=== PATIENT | female | born 1970 | race Caucasian/White ===

== ENCOUNTER 2021-02-26 01:27 | Emergency (ER) | payer BC, SELFPAY ==
[2021-02-26] VITALS (17 sets, daily range): BP systolic 120–173; BP diastolic 85–120; PULSE 73–107; RESP 14–20; TEMP 36.9; O2SAT 97–100; BMI 21.6
--- NOTE | 2021-02-26 | ECG_ITS ---
APPROVED REPORT Exam: Resting ECG HR:104 bpm ECG Measurements Heart Rate 104 AXES AL 164 P 79 QRSd 82 QRS 68 QT 358 T 60 QTc 470 Conclusion Sinus tachycardia Biatrial enlargement Abnormal ECG Electronically signed by : Raffaele Bassett, 02/26/2021 08:15:10
--- NOTE | 2021-02-26 01:28 | XR_ITS ---
PROCEDURE INFORMATION: Exam: XR Chest Exam date and time: 02/26/2021 1:28 AM Age: 51 years old Clinical indication: Other: Unresponsive; Additional info: Overdose TECHNIQUE: Imaging protocol: XR of the chest. Views: 1 view. COMPARISON: CR CXR CHEST(2 VIEWS-NOT PORTABLE) 11/24/2015 3:21 PM FINDINGS: Unremarkable appearing lungs and mediastinum. No effusion or pneumothorax. Cardiomediastinal silhouette is normal. IMPRESSION: No active lung parenchymal lesion.
[2021-02-26 01:35] LABS: ABG Base Excess -1.2 mmol/L (-2.4-2.3); ABG HCO3 22.6 mmhg (22.0-26.0); ABG Oxygen Saturation 98 % (90-100); ABG PCO2 32.6 mmhg (35.0-45.0); ABG PH 7.46 mmol/L (7.35-7.45); ABG PO2 99.8 mmhg (80-100); ABG TCO2 23.6 mmhg (23-27); Allen's Test Y; Oxygen R/A %; Source L/R
[2021-02-26 01:41] LABS: Microscopic, Urine URINE MICROSCOPIC (MICROSCOPIC)
--- NOTE | 2021-02-26 01:42 | CT_ITS ---
PROCEDURE INFORMATION: Exam: CT Head Without Contrast Exam date and time: 02/26/2021 1:42 AM Age: 51 years old Clinical indication: Altered mental status/memory loss; Patient HX: AMS, unresponsive TECHNIQUE: Imaging protocol: Computed tomography of the head without contrast. Radiation optimization: All CT scans at this facility use at least one of these dose optimization techniques: automated exposure control; mA and/or kV adjustment per patient size (includes targeted exams where dose is matched to clinical indication); or iterative reconstruction. COMPARISON: No relevant prior studies available. FINDINGS: Normal appearing brain parenchyma without intraparenchymal hemorrhage and normal rice-white matter differentiation/no obvious acute ischemic stroke. No intra-or extra-axial fluid collection, no supra-or infratentorial mass, no mass effect or midline shift. . Ventricles, sulci and basal cisterns are normal in size without hydrocephalus. Skull bones are normal. No significant mucoperiosteal thickening in the visualized paranasal sinuses. RIGHT mastoid/middle ear effusion. IMPRESSION: 1. No evidence of an acute intracranial hemorrhage, mass lesion or obvious acute ischemic infarction. 2. Acute/subacute RIGHT otitis media.
[2021-02-26 01:44] LABS: Basophils % 0.5 % (0.1-2.0); Eosinophils # 0.1 K/mm3 (0.0-0.4); Eosinophils % 0.7 % (0.1-12.0); Hematocrit 42.4 % (37.0-47.0); Hemoglobin 14.7 g/dL (12.2-16.2); Lymphocytes # 2.8 K/mm3 (0.7-4.5); Lymphocytes % 29.7 % (10-50); Mean Corpuscular HGB Conc 34.6 g/dL (31.8-35.4); Mean Corpuscular Hemoglobin 31.8 pg (27.0-31.2); Mean Corpuscular Volume 91.8 fl (81-99); Mean Platelet Volume 8.5 fl (7.4-10.4); Monocytes # 0.5 K/mm3 (0.1-1.0); Monocytes % 5.3 % (1.7-9.3); Neutrophils % 63.8 % (37.0-80.0); Platelet Count 293 K/mm3 (142-424); Red Blood Count 4.62 M/mm3 (4.20-5.40); Red Cell Distribution Width 13.6 % (11.5-17.5); White Blood Count 9.3 K/mm3 (4.8-10.8)
[2021-02-26 01:50] LABS: Appearance,Urine CLEAR (Clear); Bilirubin,Urine Negative (Negative); Blood, Urine TRACE-I (Negative); Color,Urine STRAW (Yellow); Glucose,Urine (UA) Negative (Negative); Ketones,Urine TRACE (Negative); Leukocyte Esterase,Urine Negative (Negative); Nitrate,Urine Negative (Negative); Protein,Urine Negative (Negative); Specific Gravity, Urine 1.015 (1.005-1.030); Urobilinogen,Urine 0.2 EU/dl (0.2)
[2021-02-26 01:53] LABS: Alanine Aminotransferase 24 U/L (12-78); Albumin Level 4.5 g/dl (3.5-5.0); Albumin/Globulin Ratio 1.5 (1.1-1.8); Alkaline Phosphatase 70 U/L (38-126); Anion Gap 12.6 mEq/L (5-15); Aspartate Amino Transferase 24 U/L (14-36); Bilirubin,Total 0.6 mg/dl (0.2-1.3); Blood Urea Nitrogen 12 mg/dl (7-17); Calcium 9.3 mg/dl (8.4-10.2); Carbon Dioxide 22 mmol/L (22.0-30.0); Chloride 105 mmol/L (98-107); Creatinine Clearance Estimated 79 mL/min (50-200); Estimated Glomerular Filt Rate 76 ml/min (>60); GFR (African American) 92 ML/MIN (>60); Globulin 3.1 g/dL (1.3-3.2); Glucose 92 mg/dl (74-100); Potassium 3.6 mmoL/L (3.5-5.1); Sodium 136 mmol/L (136-145); Total Protein,Serum 7.6 g/dl (6.3-8.2)
[2021-02-26 01:58] LABS: Barbiturates Screen,Urine Negative ng/ml (<200); Benzodiazepines Screen,Urine Negative ng/ml (<200)
[2021-02-26 01:59] LABS: Amphetamine/Metha Screen,Urine Negative ng/ml (<1000)
[2021-02-26 02:00] LABS: Acetaminophen < 10 ug/ml (10-30); Bacteria,Urine Trace /lpf; Cocaine Screen,Urine Negative ng/ml (<300); Ethyl Alcohol < 10 mg/dl (0-10); Methadone Screen,Urine Negative ng/ml (<300); RBC,Urine Occasional #/hpf (0-3); Salicylate < 1.0 mg/dL (2.0-20.0)
[2021-02-26 02:01] LABS: Cannabinoid Screen,Urine Negative ng/ml (<50)
[2021-02-26 02:02] LABS: Opiate Screen,Urine Negative ng/ml (<300); Phencyclidine Screen,Urine Negative ng/ml (<25)
[2021-02-26 02:10] LABS: Procalcitonin 0.034 ng/mL (0.0-2.0)
[2021-02-26 02:11] LABS: Troponin I < 0.01 ng/ml (0.00-0.034)
--- NOTE | 2021-02-26 02:24 | PC.NURSE ---
Pt has black wallet that was given to her sister.
--- NOTE | 2021-02-26 02:33 | HMH.EDAMS ---
ED Disposition Clinical Impression: Misuse of [id number] medications Depression Qualifiers: Depression Type: unspecified Qualified Code(s): F32.9 - Major depressive disorder, single episode, unspecified Disposition: Home, Self-Care Condition on Discharge: Good Instructions: DI for Depression -- Adult Additional Instructions: call pcp in am for follow up Referrals: Raffaele Bassett MD [Primary Care Provider] - - Critical Care Critical Care Time: No Attestation: On 02/26/21, the high probability of a clinically significant, sudden or life threatening deterioration of the following system(s) required my full and direct attention, intervention and personal management. The time I documented below is in addition to time spent performing reported procedures but includes the following listed in this critical care notation. Medical Decision Making - Medical Records Medical records reviewed: Yes: I reviewed the patient's medical records. - Brad Inquiry Pt receiving controlled substance: No Vital Signs: 02/26/21 01:54 02/26/21 02:06 02/26/21 02:30 Temperature 98.5 F Temperature Source Rectal Pulse Rate 100 H 94 H Pulse Rate [Right] 101 H Respiratory Rate 14 17 19 Blood Pressure 167/112 H 173/120 H Blood Pressure [Right Arm] 160/118 H Blood Pressure Mean Blood Pressure Mean [Right Arm] 132 Blood Pressure Source [Right Arm] Manual Cuff/ Auscultation 02 Sat by Pulse Oximetry 100 100 100 Oxygen Delivery Method Room Air 02/26/21 03:00 02/26/21 03:30 02/26/21 04:00 Temperature Temperature Source Pulse Rate 107 H 92 H 86 Pulse Rate [Right] Respiratory Rate 15 18 16 Blood Pressure 169/110 H 157/101 H 159/105 H Blood Pressure [Right Arm] Blood Pressure Mean 132 123 Blood Pressure Mean [Right Arm] Blood Pressure Source [Right Arm] 02 Sat by Pulse Oximetry 100 99 98 Oxygen Delivery Method Room Air Room Air 02/26/21 04:33 02/26/21 05:00 02/26/21 05:31 Temperature Temperature Source Pulse Rate 82 88 94 H Pulse Rate [Right] Respiratory Rate 16 20 14 Blood Pressure 159/106 H 166/103 H 132/101 H Blood Pressure [Right Arm] Blood Pressure Mean 120 114 113 Blood Pressure Mean [Right Arm] Blood Pressure Source [Right Arm] 02 Sat by Pulse Oximetry 97 98 98 Oxygen Delivery Method Room Air Room Air Room Air 02/26/21 06:00 02/26/21 06:30 02/26/21 07:00 Temperature Temperature Source Pulse Rate 73 87 76 Pulse Rate [Right] Respiratory Rate 18 Blood Pressure 149/106 H 131/95 H 120/85 Blood Pressure [Right Arm] Blood Pressure Mean 120 107 96 Blood Pressure Mean [Right Arm] Blood Pressure Source [Right Arm] 02 Sat by Pulse Oximetry 99 99 99 Oxygen Delivery Method Room Air 02/26/21 07:15 02/26/21 07:51 02/26/21 08:30 Temperature Temperature Source Pulse Rate 85 90 79 Pulse Rate [Right] Respiratory Rate Blood Pressure 150/101 H 155/113 H 147/96 H Blood Pressure [Right Arm] Blood Pressure Mean Blood Pressure Mean [Right Arm] Blood Pressure Source [Right Arm] 02 Sat by Pulse Oximetry 98 97 98 Oxygen Delivery Method - Lab Data Lab results reviewed: Yes: I reviewed the patient's lab results. Lab Results 02/26/21 01:30: Urine Color Straw, Urine Appearance Clear, Urine pH 6.0, Ur Specific [place] 1.015, Urine Protein Negative, Urine Glucose (UA) Negative, Urine Ketones Trace, Urine Blood Trace-i, Urine Nitrate Negative, Urine Bilirubin Negative, Urine Urobilinogen 0.2, Ur Leukocyte Esterase Negative, Urine RBC Occasional, Urine Bacteria Trace 02/26/21 01:30: WBC 9.3, RBC 4.62, Hgb 14.7, Hct 42.4, MCV 91.8, MCH 31.8 H, MCHC 34.6, RDW 13.6, Plt Count 293, MPV 8.5, Neut % (Auto) 63.8, Lymph % (Auto) 29.7, [place] % (Auto) 5.3, Eos % (Auto) 0.7, Baso % (Auto) 0.5, Neut # (Auto) 6.0, Lymph # (Auto) 2.8, [place] # (Auto) 0.5, Eos # (Auto) 0.1, Baso # (Auto) 0.0 02/26/21 01:30: Sodium 136, Potassium 3.6, C
--- NOTE | 2021-02-26 02:45 | PC.NURSE ---
I spoke with Nayla with Poison Control and the only other thing they suggest is a CK and Lactic Acid.
[2021-02-26 03:05] LABS: Creatine Kinase 48 U/L (30-135)
--- NOTE | 2021-02-26 03:12 | PC.NURSE ---
Family set password of [place]
[2021-02-26 03:19] LABS: Troponin I < 0.01 ng/ml (0.00-0.034)
[2021-02-26 03:27] LABS: Lactic Acid 0.8 mmol/L (0.7-2.1)
--- NOTE | 2021-02-26 03:37 | PC.NURSE ---
Family reports pt wakes up and speaks to them, but refuses to speak to staff.
--- NOTE | 2021-02-26 04:54 | PC.NURSE ---
Pt awake and answering questions appropriately now, poison control called and was updated on pt improvements
--- NOTE | 2021-02-26 06:01 | PC.NURSE ---
I spoke with pt and she states she doesn't remember if she took any extra meds last night. When I asked pt if she feels like harming herself she says no.
--- NOTE | 2021-02-26 07:43 | PC.NURSE ---
Poison Control called to check on pt and stated they would call back later to see if pt is d/c home or to seek other treatment
--- NOTE | 2021-02-26 07:46 | PC.NURSE ---
MD AT BEDSIDE WITH PATIENT
--- NOTE | 2021-02-26 07:54 | PC.NURSE ---
Talked to pt sister and was advised to come to the ER to further discuss plan of DC.
--- NOTE | 2021-02-26 08:21 | PC.NURSE ---
pt's sister called again and stated that she was on her way
--- NOTE | 2021-02-26 08:24 | PC.NURSE ---
Colón cath DC, pt tolerated well.
--- NOTE | 2021-02-26 08:47 | PC.NURSE ---
Dr Jones and pt's sister are at bedside at this time.
--- NOTE | 2021-02-26 08:48 | PC.NURSE ---
Family at bs, discussed with family and pt about DC plans. Family and pt will discuss plans and let staff know their decision
--- NOTE | 2021-02-26 09:20 | PC.NURSE ---
spoke with family and pt about DC plans, both state they want to go home and fu as outpt somewhere. Gave pt and family resources to contact for further evaluation. PT denies any SI/HI at this time. Sister states they live together and she will be able to observe pt. DC with sister at this time
== END 2021-02-26 09:32 | disposition home or self-care (01) ==
PROVIDERS: Emergency Provider Emergency Medicine; PCP Internal Medicine Adolescent Medicine
DX: F32.9 Major depressive disorder, single episode, unspecified (principal); F19.90 Other psychoactive substance use, unspecified, uncomplicated
CPT/HCPCS: 70450; 71045; 80053; 80305; 80329; 81001; 82550; 82803; 83605; 84145; 84484; 85025; 93005; 99283

== ENCOUNTER → 2022-07-13 11:09 | Outpatient (CLI) | payer BC, SELFPAY ==
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
--- NOTE | 2022-07-13 11:17 | XR_ITS ---
FINAL REPORT CLINICAL HISTORY: ACUTE POST-TRAMATIC PAN, pain in right side of neck, jaw and shoulder FINDINGS: CERVICAL SPINE Three views demonstrate no acute fracture. There are degenerative changes at C5-6 with disc osteophyte complex. There is mild retrolisthesis of C5 on 6. IMPRESSION: Degenerative changes as above. Reviewed, Interpreted and Dictated by Ortega Franco III, MD Transcribed by Jodi Owens Authenticated and [facility]
== END ==
PROVIDERS: PCP Internal Medicine Adolescent Medicine; Visit Provider Internal Medicine Adolescent Medicine
DX: G44.311 Acute post-traumatic headache, intractable (principal); M25.572 Pain in left ankle and joints of left foot; V89.2XXA Person injured in unspecified motor-vehicle accident, traffic, initial encounter
CPT/HCPCS: 72040; 73610